=== PATIENT | male | born 1975 | race Caucasian/White ===

== ENCOUNTER 2018-05-30 20:23 | Observation (INO) ==
[2018-05-30] MEDS ORDERED: NORMAL SALINE 1,000 ML IV ONE (20:49)
--- NOTE | 2018-05-30 20:54 | ERNOTE ---
Abdominal HPI - General Chief Complaint: Abdominal Pain Time Seen by Provider: 05/30/18 20:42 Source: patient Exam Limitations: no limitations - Immun/Allergies/Home Medications Immunizatons: IMMUNIZATION HX Immunizations Up to Date Yes History of Influenza Vaccine No Hx Pneumococcal Vaccination More Information Required Allergies/Adverse Reactions: Allergies No Known Allergies Allergy (Verified 05/30/18 20:35) Home Medications: HOME MEDICATIONS Acetaminophen [Tylenol] 1,000 mg PO Q6H PRN 05/30/18 [Last Taken Unknown] Ibuprofen 200 mg PO Q6H 05/30/18 [Last Taken Unknown] - History of Present Illness Narrative: Pt states he had onset of right sided abd pain yesterday. It has increased since then and does wax and wane some. Pain 09/29. Timing: getting worse Quality: moderate Activities at Onset: none Modifying Factors - (Improves): Present: lying down Modifying Factors - (Worsens): Present: movement Associated Symptoms: Absent: nausea, vomiting, loss of appetite Prior Abdominal Problems: Present: none Review of Systems - Review of Systems Constitutional: Present: chills Respiratory: Absent: shortness of breath Cardiology: Absent: chest pain Gastrointestinal/Abdominal: Present: See HPI. Absent: nausea, vomiting, eating less, drinking less Genitourinary: Absent: frequency, pain, dysuria, decreased urinary output Musculoskeletal: Absent: back pain, joint pain Skin: Absent: rash Neurological: Absent: dizziness/light-headedness Endocrine: Absent: excessive sweating Medical History (Last Reviewed 05/30/18 @ 20:53 by Santo Brennan DO) History of torsion of testis Surgical History: Surgical History (Last Reviewed 05/30/18 @ 20:53 by Santo Brennan DO) History of back surgery History of testicular surgery Family History: Family History (Last Reviewed 05/30/18 @ 20:53 by Santo Brennan DO) Father Hx of blood clots Mother Hx of congestive heart failure Social History: Preferred Language Surinamese Smoking Status Current every day smoker Psych History No pertinent hx Alcohol Use rarely Drug Use none No Social History Section defined Physical Exam - Physical Exam General Appearance: Present: wd/wn, alert, no apparent distress Head Exam: Present: normal inspection, no evidence of injury Neck: Present: normal inspection, nontender Respiratory: Present: no respiratory distress, no accessory muscle use, chest no ntender Cardiovascular/Chest: Present: regular rate, rhythm, no murmur Gastrointestinal/Abdominal: Present: soft, tenderness - RLQ, abnormal bowel briseyda nds - hyperactive. Absent: distended, guarding, rebound Back Exam: Present: normal inspection, normal range of motion, no CVA tenderness, no vertebral tenderness Extremity Exam: Present: normal inspection, normal range of motion, no edema Neurological Exam: Present: alert, oriented, normal mood/affect, no motor/sensory deficits Skin Exam: Present: normal color, warm/dry Lymphatic Exam: Present: no adenopathy Progress - Results and Orders Patient's Lab Results:: I have reviewed the patient's lab results. Results and Orders: Laboratory Tests 05/30/18 05/30/18 05/30/18 21:00 21:00 21:02 WBC 13.7 H Hgb 12.8 L Hct 38.5 L Plt Count 149 L Neutrophils % 81.7 H Sodium 140 Potassium 3.4 Chloride 101 BUN 17 Creatinine 1.08 Calcium 9.0 Total Bilirubin 1.1 AST 10 ALT 8 L Alkaline Phosphatase 70 Total Protein 7.3 Albumin 3.8 Urine Color Yellow Urine Appearance Clear Urine pH 6.0 Ur Specific [place] 1.025 Urine Protein Negative Urine Glucose (UA) Negative Urine Ketones 5 Urine Blood Negative Urine Nitrate Negative Urine Bilirubin 1 H Urine Ictotest Negative Urine Urobilinogen Normal Ur Leukocyte Esterase Negative Urine RBC 0-5 Urine WBC 0-5 Ur Epithelial Cells 0-5 Urine Bacteria Trace Urine Mucus Few - 1+ H Urine Culture Comments No culture indicated - Vital Signs Patient's Vital Signs:: I have reviewed the patient's vital signs. Vital Signs: Vital Signs 05/30/18 20:29 Temperature 37.3 C Pulse Rate 98 Respiratory Rate 18 Blood Pressure 124/74 O2 Sat by Pulse Oximetry 98 - X-Ray X-Ray #1 X-Ray: abdomen Interpretation: Interp. by me X-ray Comments: mild to mod stool retention, non-specific bowel gas pattern, no evidence for obstruction. - CT/Ultrasound CT/Ultrasound Narrative: CT abd/ pelvis with oral and IV contrast Positive for acute appendicitis. No perforation or abscess. otherwise unremarkable - Progress/Reassessment Chief Complaint: Abdominal Pain Progress:: Improved Progress Note-Subjective: 05/31/18 01:[address] Pendleton and she asks pt to be admitted and she plans surgery at 06:00 and requests Mefoxin administered. Departure Clinical Impression: Appendicitis Qualifiers: Appendicitis type: acute appendicitis Acute appendicitis type: with localized peritonitis Appendicitis gangrene presence: without gangrene Appendicitis perforation presence: without perforation Appendicitis abscess presence: without abscess Qualified Code(s): K35.30 - Acute appendicitis with localized peritonitis, without perforation or gangrene - Departure Disposition: Still a patient Condition: Good
[2018-05-30 21:07] LABS: Hematocrit 38.5 % (42.0-52.0); Hemoglobin 12.8 gm/dL (13.5-18.0); Mean Cell Volume 92.5 fl (78-100); Mean Corpuscular Hemoglobin 30.8 pg (27-31); Mean Corpuscular Hgb Conc 33.2 g/dl (32-36); Mean Platelet Volume 10.2 fl (8-11.3); Neutrophil # 11.2 K/mm3 (1.3-6.0); Neutrophil % 81.7 % (42-75.0); Platelet Count 149 K/mm3 (150-450); Red Blood Count 4.16 M/mm3 (4.7-6.0); Red Cell Distribution Width 13.6 % (11.5-14.0); White Blood Count 13.7 K/mm3 (4.0-10.5)
[2018-05-30 21:11] LABS: Urine Bilirubin 1 mg/dl (NEGATIVE); Urine Blood Negative /ul (NEGATIVE); Urine Ketone 5 mg/dL (NEGATIVE); Urine Nitrite Negative (NEGATIVE); Urine Protein Negative (NEGATIVE); Urine Specific Gravity 1.025 SP.GR. (1.005-1.030); Urine Urobilinogen Normal (NORMAL)
[2018-05-30 21:20] LABS: Albumin * 3.8 gm/dl (3.4-5.0); Anion Gap 11.9 mmol/L (6.8-13.8); BUN/Creatinine Ratio 15.7 (9.0-21.6); Bilirubin, Total 1.1 mg/dL (0.0-1.1); Ca. Corrected For Albumin 8.8 mg/dL (8.4-10.2); Carbon Dioxide 30.5 mmol/L (24-32.6); Potassium 3.4 mmol/L (3.4-4.6); Total Protein 7.3 gm/dL (6.2-8.2)
[2018-05-30 21:24] LABS: Urine Appearance Clear (CLEAR); Urine Bacteria TRACE; Urine Color Yellow; Urine RBC 0-5 /hpf (0-5); Urine WBC 0-5 /hpf (0-5)
[2018-05-30 21:25] LABS: Urine Mucus Few - 1+
[2018-05-30] MEDS ORDERED: DIATRIZOATE MEGLUMINE, SODIUM 30 ML BTL PO ONE (22:23)
[2018-05-31] MEDS ORDERED: CEFOXITIN SODIUM 2 GM in NORMAL SALINE 100 ML IV ONE (01:30)
--- NOTE | 2018-05-31 04:43 | ANES ---
Anesthesia Pre Procedure Eval Vitals/Labs: Last Vital Signs Temp 36.8 C 05/31/18 02:15 Pulse 78 05/31/18 02:15 Resp 16 05/31/18 02:15 BP 100/66 05/31/18 02:15 Pulse Ox 97 05/31/18 02:15 HOME MEDICATIONS Acetaminophen [Tylenol] 1,000 mg PO Q6H PRN 05/30/18 [Last Taken Unknown] Ibuprofen 200 mg PO Q6H 05/30/18 [Last Taken Unknown] Allergies/Adverse Reactions: Allergies Allergy/AdvReac Type Severity Reaction Status Date / Time No Known Allergies Allergy Verified 05/30/18 20:35 - Planned Procedure Planned Procedure: APPENDICITIS Medication List Reviewed:: Yes Allergies Verified: Yes Medical History (Last Reviewed 05/31/18 @ 04:38 by Stiven Agosto CRNA) History of torsion of testis Surgical History (Last Reviewed 05/31/18 @ 04:38 by Stiven Agosto CRNA) History of back surgery History of testicular surgery Family History (Last Reviewed 05/31/18 @ 04:38 by Stiven Agosto CRNA) Father Hx of blood clots Mother Hx of congestive heart failure - Family Anesthesia History Family History:: no untoward family reactions to anesthesia, no familial bleeding tendencies, no family history of clotting disorders, no family history of premature - Airway/Neck/Teeth Within Normal Limits:: Yes Teeth Condition: intact Neck Exam: full range of motion Mallampatti Score: 2 Thyromental (T-M) distance: > 6 cm Mandibulo Hyoid distance: > 3 cm - Respiratory Respiratory Physical: lungs clear Smoking Status: Current every day smoker Discussed smoking cessation including day of surgery: Yes - none today Sleep Apnea currently treated: No Sleep Apnea by current assessment: No - Cardiovascular Tolerate Activity: Good Heart Sounds: S1 & S2, Regular - Anesthesia Assessment and Plan ASA Class: PS, II Anesthesia Type Plan: General ET Planned difficult intubation/equipment available: No
[2018-05-31] MEDS ORDERED: CEFOXITIN SODIUM 1 GM in DEXTROSE 5 % IN WATER 100 ML IV ONE ×2 (05:08)
--- NOTE | 2018-05-31 05:15 | HP ---
Chief Complaint - Chief Complaint Date of Service: 05/31/18 Time of Service: 05:09 Chief Complaint: acute appy History of Present Illness: Hilton is a pleasant 43 year old male, who developed abdominal pain on Tuesday. He had to leave work early. He has never had pain like this before. He denies nausea or vomiting. The pain is worse in the right lower quadrant. He came into the hospital last night. He was started on antibiotics and admitted overnight. He has a history of testicular torsion. This was on the right side. Sometimes he feels like tissue comes out on the right lower quadrant and then goes back in. This is independent of his current abdominal pain. Medical History (Last Reviewed 05/31/18 @ 04:38 by Stiven Agosto CRNA) History of torsion of testis Surgical History: Surgical History (Last Reviewed 05/31/18 @ 04:38 by Stiven Agosto CRNA) History of back surgery History of testicular surgery Family History: Family History (Last Reviewed 05/31/18 @ 04:38 by Stiven Agosto CRNA) Father Hx of blood clots Mother Hx of congestive heart failure Social History: Patient Lives/Resources Home Utilized Occupation [employer] Preferred Language Surinamese Do you have any oriental orthodox or No cultural preference? Smoking Status Current every day smoker Have you smoked in the past 12 Yes months Do you dip or chew tobacco No Psych History No pertinent hx Alcohol Use rarely Drug Use none No Social History Section defined Review Of Systems (GEN) - Review of Systems Generalized/Overall Review: Present: Weakness, Malaise EENTM: Present: No Symptoms Reported Respiratory: Present: No Symptoms Reported Cardiac: Present: No Symptoms Reported Abdominal: Present: Abdominal Pain Genitourinary: Present: No Symptoms Reported Musculoskeletal: Present: No Symptoms Reported Neurological: Present: No Symptoms Reported Skin: Present: No Symptoms Reported Endocrine: Present: No Symptoms Reported Immunizations: IMMUNIZATION HX Immunizations Up to Date Yes History of Influenza Vaccine No Hx Pneumococcal Vaccination More Information Required Allergies/Adverse Reactions: Allergies Allergy/AdvReac Type Severity Reaction Status Date / Time No Known Allergies Allergy Verified 05/30/18 20:35 Home Medications: HOME MEDICATIONS Acetaminophen [Tylenol] 1,000 mg PO Q6H PRN 05/30/18 [Last Taken Unknown] Ibuprofen 200 mg PO Q6H 05/30/18 [Last Taken Unknown] Exam - Exam Vital Signs: Vital Signs - Last Taken Temp 36.8 C 05/31/18 02:15 Pulse 78 05/31/18 02:15 Resp 16 05/31/18 02:15 BP 100/66 05/31/18 02:15 Pulse Ox 97 05/31/18 02:15 Constitutional: Present: Alert, Oriented x3, Cooperative, Well developed ENT Exam: Present: hearing grossly normal Neck: Present: supple Breasts: Present: Exam deferred Respiratory: Present: lungs clear, normal breath sounds Cardiovascular/Chest: Present: regular rate, rhythm Abdomen: Present: Normal bowel sounds, soft, tender /Rectal: Present: Exam deferred Extremity: Present: normal range of motion Skin Exam: Present: normal color Neurologic: Present: chiropractor assistant II-XII nml as tested Appearance: Present: appropriate appearance Eye contact: Present: cooperative, good eye contact, normal speech Thoughts: Present: normal thought pattern Diagnostic Studies: Abnormal Lab Results 05/30/18 05/30/18 05/30/18 Range/Units 21:00 21:00 21:02 WBC 13.7 H (4.0-10.5) K/mm3 RBC 4.16 L (4.7-6.0) M/mm3 Hgb 12.8 L (13.5-18.0) gm/dL Hct 38.5 L (42.0-52.0) % Plt Count 149 L (150-450) K/mm3 Immature Gran # (Auto) 0.05 H (0.000-0.0310) K/mm3 Neutrophils % 81.7 H (42-75.0) % Lymphocytes % 11.4 L (20-51) % Neutrophils # 11.2 H (1.3-6.0) K/mm3 ALT 8 L (19-67) U/L Urine Bilirubin 1 H (NEGATIVE) mg/dl Urine Mucus Few - 1+ H (NONE) Laboratory Results WBC 13.7 K/mm3 (4.0-10.5) H 05/30/18 21:00 RBC 4.16 M/mm3 (4.7-6.0) L 05/30/18 21:00 Hgb 12.8 gm/dL (13.5-18.0) L 05/30/18 21:00 Hct 38.5 % (42.0-52.0) L 05/30/18 21:00 MCV 92.5 fl (78-100) 05/30/18 21:00 MCH 30.8 pg (27-31) 05/30/18 21:00 MCHC 33.2 g/dl (32-36) 05/30/18 21:00 RDW 13.6 % (11.5-14.0) 05/30/18 21:00 Plt Count 149 K/mm3 (150-450) L 05/30/18 21:00 MPV 10.2 fl (8-11.3) 05/30/18 21:00 Immature Gran % (Auto) 0.40 % (0.001-0.429) 05/30/18 21:00 Immature Gran # (Auto) 0.05 K/mm3 (0.000-0.0310) H 05/30/18 21:00 Neutrophils % 81.7 % (42-75.0) H 05/30/18 21:00 Lymphocytes % 11.4 % (20-51) L 05/30/18 21:00 Monocytes % 6.1 % (0.0-9) 05/30/18 21:00 Eosinophils % 0.3 % (0.0-3.0) 05/30/18 21:00 Basophils % 0.1 % (0.0-1.0) 05/30/18 21:00 Nucleated RBC % 0.0 k/mm3 (0-1) 05/30/18 21:00 Neutrophils # 11.2 K/mm3 (1.3-6.0) H 05/30/18 21:00 Lymphocytes # 1.56 k/mm3 (1.5-3.5) 05/30/18 21:00 Monocytes # 0.8 k/mm3 (0.0-1.0) 05/30/18 21:00 Eosinophils # 0.0 k/mm3 (0.0-0.7) 05/30/18 21:00 Absolute Basophils 0.0 k/mm3 (0.0-0.1) 05/30/18 21:00 Sodium 140 mmol/L (132-142) 05/30/18 21:00 Plasma Sodium 140 mmol/L (130-142) 05/30/18 21:00 Potassium 3.4 mmol/L (3.4-4.6) 05/30/18 21:00 Chloride 101 mmol/L (97-106) 05/30/18 21:00 Carbon Dioxide 30.5 mmol/L (24-32.6) 05/30/18 21:00 Anion Gap 11.9 mmol/L (6.8-13.8) 05/30/18 21:00 BUN 17 mg/dL (6-23) 05/30/18 21:00 Creatinine 1.08 mg/dL (0.4-1.4) 05/30/18 21:00 Est GFR (Non-Af Amer) 79 mL/min (60-130) 05/30/18 21:00 BUN/Creatinine Ratio 15.7 (9.0-21.6) 05/30/18 21:00 Random Glucose 99 mg/dL (70-110) 05/30/18 21:00 Calcium 9.0 mg/dL (7.9-10.9) 05/30/18 21:00 Calcium Adj for Albumin 8.8 mg/dL (8.4-10.2) 05/30/18 21:00 Total Bilirubin 1.1 mg/dL (0.0-1.1) 05/30/18 21:00 AST 10 U/L (0-48) 05/30/18 21:00 ALT 8 U/L (19-67) L 05/30/18 21:00 Alkaline Phosphatase 70 U/L (50-170) 05/30/18 21:00 Total Protein 7.3 gm/dL (6.2-8.2) 05/30/18 21:00 Albumin 3.8 gm/dl (3.4-5.0) 05/30/18 21:00 Urine Color Yellow 05/30/18 21:02 Urine Appearance Clear (CLEAR) 05/30/18 21:02 Urine pH 6.0 pH (5.0-7.0) 05/30/18 21:02 Ur Specific [place] 1.025 SP.GR. (1.005-1.030) 05/30/18 21:02 Urine Protein Negative mg/dL (NEGATIVE) 05/30/18 21:02 Urine Glucose (UA) Negative mg/dL (NEGATIVE) 05/30/18 21:02 Urine Ketones 5 mg/dL (NEGATIVE) 05/30/18 21:02 Urine Blood Negative /ul (NEGATIVE) 05/30/18 21:02 Urine Nitrate Negative (NEGATIVE) 05/30/18 21:02 Urine Bilirubin 1 mg/dl (NEGATIVE) H 05/30/18 21:02 Urine Ictotest Negative (NEGATIVE) 05/30/18 21:02 Urine Urobilinogen Normal EU/dl (NORMAL) 05/30/18 21:02 Ur Leukocyte Esterase Negative /ul (NEGATIVE) 05/30/18 21:02 Urine RBC 0-5 /hpf (0-5) 05/30/18 21:02 Urine WBC 0-5 /hpf (0-5) 05/30/18 21:02 Ur Epithelial Cells 0-5 /hpf (0-5) 05/30/18 21:02 Urine Bacteria Trace (NONE) 05/30/18 21:02 Urine Mucus Few - 1+ (NONE) H 05/30/18 21:02 Urine Culture Comments No culture indicated 05/30/18 21:02 Assessment/Plan - Assessment/Plan (1) Appendicitis Problem: Acute Qualifiers: Appendicitis type: acute appendicitis Acute appendicitis type: with localized peritonitis Appendicitis gangrene presence: without gangrene Appendicitis perforation presence: without perforation Appendicitis abscess presence: without abscess Qualified Code(s): K35.30 - Acute appendicitis with localized peritonitis, without perforation or gangrene Plan - Plan Plan: Patient will be taken to the operating room for laparoscopic possible open appendectomy. Risks and benefits of the procedure were discussed with the patient including bleeding, infection, and recurrent infection. He voices understanding and would like to proceed. He will be given another dose of antibiotics. He'll possibly discharge home later today depending how he is feeling. Q for allowing me to participate in the care of your patient, please call with any questions
--- NOTE | 2018-05-31 05:16 | OR ---
Operative Report - Dictated Report Narrative: Date of Service: 05/31/18 Procedure: laparoscopic appendectomy Pre-procedure diagnosis: acute appendicitis Post-procedure diagnosis: same Surgeon: Dr. Tiffanie Pendleton Anesthesia: general Indication for procedure: Hilton is a very pleasant 43-year-old gentleman who has CT proven appendicitis which is symptomatic. Description of procedure: After appropriate informed consent was obtained patient was taken to the operating room, placed in the supine position. General anesthesia was achieved. The RN placed a Shoemaker catheter. The patient was prepped and draped in the usual sterile fashion. A 5 mm periumbilical incision was made, hemostat was used to dissect down to the fascia. A Veress needle was inserted, a saline drop test was performed which was satisfactory. The abdomen was insufflated to 15 mmHg. A 5mm blunt trocar was placed at the umbilicus. The camera was inserted, there was no evidence of a trocar injury. A 12 mm trocar was placed in the left lower quadrant of the abdomen. A 5 mm trocar was placed in the suprapubic region. The patient was placed in a head down, rotated left position, to facilitate exposure. The appendix was identified, it appeared consistent with acute appendicitis. A window was made in the mesoappendix. The 45 mm echelon stapler with the white load was placed across the base of the appendix. There was good hemostasis. The echelon 45 mm stapler with a white load was then placed across the mesoappendix. There was good hemostasis. The appendix was removed through an Endo Catch bag. The abdomen was inspected and the staple lines were intact, with good hemostasis. The remainder of the abdomen was inspected and was satisfactory. The 12 mm trocar site was closed with an 0 Vicryl suture using a PMI. The abdomen was desufflated. Local anesthetic was injected. The incisions were closed with inverted interrupted 4- 0 Monocryl sutures. Mastisol and Steri-Strips were applied. The patient tolerated the procedure well and was transported to the PACU in satisfactory condition. Estimated blood loss: minimal Complications: none Specimens to pathology: appendix Disposition: The patient will be admitted to the floor for observation.
[2018-05-31] MEDS: RINGER'S SOLUTION,LACTATED 1,000 ML IV PRN ×2 (05:30→07:18)
[2018-05-31] MEDS ORDERED: BUPIVACAINE HCL 50 ML VIAL IJ ONE (06:09)
[2018-05-31] MEDS ORDERED: ACETAMINOPHEN 325 MG TABLET PO PRN (06:21)
[2018-05-31] MEDS ORDERED: ONDANSETRON HCL/PF 2 MG/ML VIAL IV PRN (06:21)
[2018-05-31] MEDS ORDERED: HYDROcodone/ACETAMINOPHEN 1 EACH TABLET PO PRN (06:21)
--- NOTE | 2018-05-31 06:38 | ANES ---
Post Anesthesia Discharge - Transfer of Care Transfer of Care handoff given to nurse: Yes - Discharge from PACU Discharge from PACU when meets criteria: Yes - Awake in PACU.
--- NOTE | 2018-05-31 07:07 | ANES ---
Post Anesthesia Assessment - Vital Signs Vitals: Last Vital Signs Temp 36.7 C 05/31/18 06:50 Pulse 80 05/31/18 06:50 Resp 14 05/31/18 06:50 BP 125/81 05/31/18 06:50 Pulse Ox 98 05/31/18 06:50 Airway Patency: Normal - Mental Status Level Of Consciousness: Awake, Alert, Appropriate - Pain Level Pain Score: 2 - N/V Assessment Nausea/Vomiting Presence: None Dehydration:: No
[2018-05-31] MEDS ORDERED: HYDROmorphone HCL 1 MG/ML DISP.SYRIN IV PRN (07:15)
--- NOTE | 2018-05-31 11:41 | DS ---
(1) Appendicitis Problem: Acute Qualifiers: Appendicitis type: acute appendicitis Acute appendicitis type: with localized peritonitis Appendicitis gangrene presence: without gangrene Appendicitis perforation presence: without perforation Appendicitis abscess presence: without abscess Qualified Code(s): K35.30 - Acute appendicitis with localized peritonitis, without perforation or gangrene Description of Stay: He shouldn't initially presented to the emergency room with right lower quadrant abdominal pain. He underwent a CT scan which demonstrated acute appendicitis. Patient underwent a laparoscopic appendectomy, this was uneventful. Patient recovered well. Procedures Performed: see notes below List Procedures: lap appy Results and Findings: Lab Pending Results 05/30/18 21:00: WBC 13.7 H, RBC 4.16 L, Hgb 12.8 L, Hct 38.5 L, MCV 92.5, MCH 30.8, MCHC 33.2, RDW 13.6, Plt Count 149 L, MPV 10.2, Immature Gran % (Auto) 0.40, Immature Gran # (Auto) 0.05 H, Neutrophils % 81.7 H, Lymphocytes % 11.4 L, Monocytes % 6.1, Eosinophils % 0.3, Basophils % 0.1, Nucleated RBC % 0.0, Neutrophils # 11.2 H, Lymphocytes # 1.56, Monocytes # 0.8, Eosinophils # 0.0, Absolute Basophils 0.0 05/30/18 21:00: Sodium 140, Plasma Sodium 140, Potassium 3.4, Chloride 101, Carbon Dioxide 30.5, Anion Gap 11.9, BUN 17, Creatinine 1.08, Est GFR (Non-Af Amer) 79, BUN/Creatinine Ratio 15.7, Random Glucose 99, Calcium 9.0, Calcium Adj for Albumin 8.8, Total Bilirubin 1.1, AST 10, ALT 8 L, Alkaline Phosphatase 70, Total Protein 7.3, Albumin 3.8 05/30/18 21:02: Urine Color Yellow, Urine Appearance Clear, Urine pH 6.0, Ur Specific [place] 1.025, Urine Protein Negative, Urine Glucose (UA) Negative, Urine Ketones 5, Urine Blood Negative, Urine Nitrate Negative, Urine Bilirubin 1 H, Urine Ictotest Negative, Urine Urobilinogen Normal, Ur Leukocyte Esterase Negative, Urine RBC 0-5, Urine WBC 0-5, Ur Epithelial Cells 0-5, Urine Bacteria Trace, Urine Mucus Few - 1+ H, Urine Culture Comments No culture indicated 05/31/18 06:19: Pathology Specimen Spec to path Discharge Location: Home Disposition: Home self-care Condition: Good Discharge Activity: Activity as tolerated Discharge Diet: General/regular food Complete Home Medications List: Complete Home Medication List: Acetaminophen [Tylenol] 1,000 mg PO Q6H PRN 05/30/18 Ibuprofen 200 mg PO Q6H 05/30/18 HYDROcodone/ACETAMINOPHEN [[place] 5-325] 2 ea PO Q6H PRN tab 05/31/18
[2018-06-01 14:37] VITALS: BP 112/69
== END 2018-05-31 13:50 | disposition home or self-care (01) ==
LOC: ER 20:23 → MS 20:23
PROVIDERS: ADMIT Surgery; ATTEND Surgery
DX: K35.30 Acute appendicitis with localized peritonitis, without perforation or gangrene
CPT/HCPCS: 36415; 74019; 74020; 74177; 80053; 81001; 85025; 88304; 96365; 96366; 96375; 99285; G0378